=== PATIENT | male | born 1955 ===

== ENCOUNTER 2022-01-01 06:16 | Day surgery (SDC) | payer OTHER | END 2022-01-01 11:40 | disposition home or self-care (01) | LOC: AMB-ENDOS 06:16 → CIR.AMB 13:30 | PROVIDERS: ATTEND Surgery | DX: D12.5 Benign neoplasm of sigmoid colon (principal); K57.90 Diverticulosis of intestine, part unspecified, without perforation or abscess without bleeding; K92.1 Melena; Z20.822 Contact with and (suspected) exposure to COVID-19 ==